=== PATIENT | female | born 1985 | race Caucasian/White ===

== ENCOUNTER 2020-05-25 08:43 | Emergency (ER) | payer OTHER, SELFPAY ==
--- NOTE | ~2020-05-25 | US_ITS ---
EXAMINATION: US OB <=14 wk fetus w TV DATE: 05/25/2020 10:49 INDICATION: Spotting and cramping during first trimester of . TECHNIQUE: Real-time pelvic ultrasound utilizing both a transvaginal and transabdominal probe was pe rformed. The interpreting radiologist was not present for the study. COMPARISON: None. FINDINGS: The uterus measures 8.8 x 5.2 x 6.2 cm. There is an intrauterine gestational sac. A likely latasha e is identified. The crown rump length measures 8 mm, which correlates with an estimated gestational age of 5 weeks and 6 days. heart motion is identified measuring 91 beats per minute (bpm) by M- mode Doppler. 10 x 6 mm anechoic likely nabothian cyst at the cervix. The right ovary is not visualized. The left ovary measures 3.5 x 1.4 x 2.2 cm. Vascular flow identifi ed at the left ovary on color Doppler. There is no free fluid in the pelvis. IMPRESSION: 1. Single living fetus with heart rate of 91 bpm. 2. Gestational age by ultrasound of 5 weeks 6 day(s) +/- 4 day(s) with ultrasound estimated date of delivery (RIKKI) of 01/19/2021. Reviewed, dictated and finalized at location A. IMPRESSION: 1. Single living fetus with heart rate of 91 bpm. 2. Gestational age by ultrasound of 5 weeks 6 day(s) +/- 4 day(s) with ultraso und estimated date of delivery (RIKKI) of 01/19/2021.
[2020-05-25 08:56] VITALS: BP 139/86; PULSE 81; RESP 12; TEMP 36.2; O2SAT 100
[2020-05-25 09:22] LABS: Basophils Percent Auto 0.3 % (0.2-1.2); Eosinophils Absolute Auto 0.2 K/mm3 (0-0.3); Eosinophils Percent Auto 1.9 % (0-4.4); Hematocrit 42.8 % (37.0-47.0); Hemoglobin 14.5 g/dL (12.0-15.0); Immature Granulocyte Absolute 0.03 K/mm3 (0.00-0.031); Immature Granulocyte Percent A 0.3 % (0-0.5); Lymphocytes Absolute Auto 1.65 K/mm3 (0.9-3.2); Lymphocytes Percent Auto 16.9 % (18.3-44.2); Mean Corpuscular HGB Conc 33.9 g/dl (32-36); Mean Corpuscular Hemoglobin 29.9 pg (26-34); Mean Corpuscular Volume 88.2 fl (80-100); Monocytes Absolute Auto 0.4 K/mm3 (0.1-0.6); Monocytes Percent Auto 4.2 % (2.6-8.5); Neutrophils Absolute Auto 7.5 K/mm3 (1.3-6.7); Neutrophils Percent Auto 76.4 % (45.5-73.1); Platelet Count Result 332 k/mm3 (150-375); Red Blood Count 4.85 M/mm3 (4.2-5.4); Red Cell Distribution Width 14.9 % (11.5-14.5); White Blood Count 9.8 K/mm3 (4.5-10.0)
--- NOTE | 2020-05-25 10:25 | ED.FEMALEGU ---
HPI - Female Genitourinary General Chief complaint: Vaginal Bleeding Stated complaint: VAG SPOTTING 5 WKS PREG Time Seen by Provider: 05/25/20 09:08 Source: patient Mode of arrival: ambulatory Limitations: no limitations History of Present Illness HPI Narrative: This is a 35 year old that presents to the ER for vaginal spotting x 3 days. Reports she is about 5 weeks by LMP. Reports she has seen spotting all weekend. Also reports some mild cramping. Dr. Richter is her OB. Denies fever, vomiting, or dysuria. Review of Systems Review of Systems: Narrative: CONSTITUTIONAL: Denies fever GASTROINTESTINAL: Reports pelvic cramping. Denies nausea, vomiting GENITOURINARY: Denies dysuria All systems reviewed & are unremarkable except as noted in HPI and below PMFSH Surgical History Surgical History (Updated 05/25/20 @ 10:28 by Rakel Ayers PA-C) History of loop electrosurgical excision procedure (LEEP) Social History Social History (Updated 05/25/20 @ 10:28 by Rakel Ayers PA-C) Smoking status: Current every day smoker Exam Narrative: Exam Narrative: GENERAL: Well-appearing, obese, and in no acute distress. HEAD: Normocephalic, atraumatic. EYES: EOMI. CHEST: Clear to auscultation. No respiratory distress. No wheezes rales or rhonchi HEART: Regular rate and rhythm. No murmur heard. Normal peripheral pulses. ABDOMEN: Soft, nontender, nondistended, normal active bowel sounds. EXTREMITIES: Normal range of motion. No edema. SKIN: Warm, dry, no rash. NEURO: No focal deficits. Alert and oriented x3. PSYCH: Normal mood and affect PELVIC: Normal external genitalia. Cervix does have some areas of irritation, small amount of cervical mucus with some blood tinge. No cervical motion tenderness Course Consultations Consultation #1: Spoke with Dr. eB about patient and work-up. Would like patient to follow-up in clinic this week Date: 05/25/20 Time: 12:03 Vital Signs Vital signs: Vital Signs Temperature 97.2 F L 05/25/20 08:56 Pulse Rate 81 05/25/20 08:56 Respiratory Rate 12 05/25/20 08:56 Blood Pressure 139/86 05/25/20 08:56 Pulse Oximetry 100 05/25/20 08:56 Temperature 97.2 F L 05/25/20 08:56 Pulse Rate 74 05/25/20 11:43 Respiratory Rate 18 05/25/20 11:43 Blood Pressure 131/79 05/25/20 11:43 Pulse Oximetry 100 05/25/20 11:43 MDM - Female Genitourinary MDM Narrative Medical decision making narrative: Patient presents the emergency department for spotting, 5 weeks by LMP. Patient is afebrile and nontoxic-appearing. Her vitals are stable. Hemoglobin is 14.5. Beta hCG is 13,782. Patient is B+. Obstetrics ultrasound shows a single living fetus with heart rate of 91 bpm with gestational age by ultrasound 5 weeks and 6 days. Pelvic exam just shows mild blood-tinged cervical mucus. Her cervix does appear somewhat irritated, but patient does report she has had a LEEP procedure and biopsies in the past. Patient and family updated on case findings. Spoke with Dr. Be about patient and work-up. Would like patient to follow-up in clinic this week. Patient is stable and felt appropriate for further outpatient evaluation. She was given warnings to return to the ER Lab Data Attestation: I reviewed the patient's lab results. Result diagrams: 05/25/20 09:12 Labs: Lab Results 05/25/20 05/25/20 05/25/20 Range/Units 09:11 09:12 09:12 WBC 9.8 (4.5-10.0) K/mm3 RBC 4.85 (4.2-5.4) M/mm3 Hgb 14.5 (12.0-15.0) g/dL Hct 42.8 (37.0-47.0) % MCV 88.2 (80-100) fl MCH 29.9 (26-34) pg MCHC 33.9 (32-36) g/dl RDW 14.9 H (11.5-14.5) % Plt Count 332 (150-375) k/mm3 MPV 9.0 (7.4-10.4) fl Immature Gran % (Auto) 0.3 (0-0.5) % Neut % (Auto) 76.4 H (45.5-73.1) % Lymph % (Auto) 16.9 L (18.3-44.2) % [place] % (Auto) 4.2 (2.6-8.5) % Eos % (Auto) 1.9 (0-4.4) % Baso % (Auto) 0.3 (0.2-1.2) % Lymph # (Auto) 1.65 (
[2020-05-25 11:43] VITALS: BP 131/79; PULSE 74; RESP 18; O2SAT 100
== END 2020-05-25 12:23 | disposition home or self-care (01) ==
PROVIDERS: Physician Assistant; Emergency Provider Emergency Medicine
DX: O20.9 Hemorrhage in early pregnancy, unspecified (principal); O09.521 Supervision of elderly multigravida, first trimester; O99.331 Smoking (tobacco) complicating pregnancy, first trimester; F17.200 Nicotine dependence, unspecified, uncomplicated; Z3A.01 Less than 8 weeks gestation of pregnancy
CPT/HCPCS: 36415; 76801; 76817; 84702; 85025; 85461; 99284

== ENCOUNTER 2022-06-10 08:53 | Outpatient (CLI) | payer OTHER, SELFPAY ==
--- NOTE | ~2022-06-10 | MM_ITS ---
EXAMINATION: MM diagnostic marija BI w amarilis HISTORY: Left breast pain TECHNIQUE: ML, MLO and CC 3-D tomosynthesis images of both breasts were performed and synthetic 2-D i mages were generated. CAD analysis was submitted and interpreted. COMPARISON: None BREAST PARENCHYMAL COMPOSITION: The breasts are almost entirely fatty. FINDINGS: No suspicious mass or architectural distortion, malignant calcification, skin thickening or retraction is detected. IMPRESSION: 1. No mammographic evidence of malignancy 2. Routine annual mammographic screening beginning at age 40 is recommended BI-RADS Category 1: Negative Reviewed, dictated and finalized at location A.
== END 2022-06-10 08:54 | disposition home or self-care (01) ==
LOC: CHSIMG 08:56
PROVIDERS: PCP Family Medicine; Visit Provider Nurse Practitioner
DX: N64.4 Mastodynia (principal)
CPT/HCPCS: 77062; 77066; G0279